=== PATIENT | female | born 2000 | race Hispanic/Latino ===

== ENCOUNTER 2024-08-30 21:41 | Day surgery (SDC) | payer SELFPAY ==
[2024-08-30 22:13] VITALS: BMI 40.2
[2024-08-30] MEDS ORDERED: hydrALAZINE 20 MG/ML VIAL SLOW IVP PRN (22:25)
[2024-08-30] MEDS ORDERED: Ondansetron ODT 8 MG TAB SL SCH (22:30)
[2024-08-30] MEDS: Dextrose 5%-Lactated Ringers 1,000 ML IV SCH (22:45)
[2024-08-30 22:54] LABS: Bilirubin Neg (Negative); Blood, Urine Negative (Negative); Glucose, Urine (Dipstick) Normal (Negative); Ketone, Urine Negative (Negative); Leukocyte 500 (Negative); Nitrite Negative (Negative); Protein, Urine (Dipstick) 15 mg/dl (Neg-Trace); Specific Gravity, Urine 1.015 (1.005-1.030); Urobilinogen Normal mg/dL (Less than 2)
[2024-08-30 22:55] LABS: Clarity Hazy (Clear)
[2024-08-30] MEDS: Ondansetron ODT 4 MG TAB SL SCH (23:00)
[2024-08-30] MEDS: Pantoprazole 40 MG VIAL IVP SCH (23:01)
[2024-08-30] MEDS: Loperamide HCl 2 MG CAP PO SCH (23:01)
[2024-08-30 23:26] LABS: Bacteria/HPF 2+ HPF (None Seen); CAUTI Indications for Culture Pregnancy; Mucous/LPF 1+ LPF (<2+); RBC/HPF 0-3 HPF (0-3)
[2024-08-30 23:27] LABS: Calcium Oxalate Crystals 3+ HPF (None Seen); Transitional Epithelial 0-3 HPF (None Seen)
[2024-08-30 23:28] LABS: Urine Culture Reflex Yes Yes
[2024-08-31] MEDS: cefTRIAXone\\ROCEPHIN 1 GM in Sodium Chloride 0.9% 100 ML IVPB SCH (00:34)
== END 2024-08-31 01:10 | disposition home or self-care (01) ==
LOC: CSHLD/OP 21:41
PROVIDERS: ATTEND Obstetrics & Gynecology
DX: O99.613 Diseases of the digestive system complicating pregnancy, third trimester (principal); K21.9 Gastro-esophageal reflux disease without esophagitis; O99.891 Other specified diseases and conditions complicating pregnancy; R10.9 Unspecified abdominal pain; O21.2 Late vomiting of pregnancy; Z79.899 Other long term (current) drug therapy; Z3A.34 34 weeks gestation of pregnancy
CPT/HCPCS: 81001; 87086; 96360; 99285; J0696; J2470; Q0162

== ENCOUNTER 2024-09-13 12:20 | Day surgery (SDC) | payer OTHER ==
[2024-09-13] MEDS ORDERED: hydrALAZINE 20 MG/ML VIAL SLOW IVP PRN (13:03)
[2024-09-13 13:37] LABS: ALT (SGPT) 10 U/L (8-55); AST (SGOT) 17 U/L (5-34); Albumin 2.5 g/dL (3.5-5.0); Alkaline Phosphatase 183 U/L (40-110); Anion Gap 13 mmol/L (10-20); BUN (Urea Nitrogen) 10 mg/dL (7.0-18.7); Bilirubin, Total 0.3 mg/dL (0.2-1.2); Calc. Creatinine Clearance 0 mL/min (70-130); Calcium 9.4 mg/dL (7.8-10.44); Carbon Dioxide 18 mmol/L (22-29); Chloride 110 mmol/L (98-107); Estimated GFR 128; Globulin 3.3 g/dL (2.4-3.5); Glucose 90 mg/dL (70-105); Protein, Total 5.8 g/dL (6.0-8.3); Sodium 137 mmol/L (136-145)
[2024-09-13 13:52] LABS: Creatinine, Urine 125.84 mg/dL (47-110)
[2024-09-13 14:02] LABS: #Basophils 0.04 10x3/uL (0.0-0.2); #Eosinophils 0.09 10x3/uL (0.0-0.5); #Monocytes 0.45 10x3/uL (0.0-1.1); #Neutrophils 5.55 10x3/uL (1.5-8.4); %Basophils 0.5 % (0.0-2.0); %Eosinophils 1.1 % (0.0-6.0); %Lymphocytes 26.6 % (18.0-47.0); %Monocytes 5.4 % (0.0-10.0); Hematocrit 36.7 % (34.9-44.5); Hemoglobin 12.7 g/dL (12.0-15.5); Mean Corpuscular HGB CONC 34.6 g/dL (32.0-36.0); Mean Corpuscular Hemoglobin 30.6 pg (27.0-33.0); Mean Corpuscular Volume 88.4 fL (81.6-98.3); Mean Platelet Volume 14.1 fL (7.4-10.4); Platelet Count 149 10x3/uL (150-450); RBC Distribution Width 12.4 % (11.5-14.5); Red Blood Cell (RBC) Count 4.15 10x6/uL (3.90-5.03); White Blood Cell (WBC) Count 8.4 10x3/uL (3.5-10.5)
== END 2024-09-13 16:51 | disposition home or self-care (01) ==
LOC: CSHLD/OP 12:20
PROVIDERS: ATTEND Family Medicine
DX: O99.891 Other specified diseases and conditions complicating pregnancy (principal); R03.0 Elevated blood-pressure reading, without diagnosis of hypertension; Z3A.36 36 weeks gestation of pregnancy; R51.9 Headache, unspecified; O99.613 Diseases of the digestive system complicating pregnancy, third trimester; O99.213 Obesity complicating pregnancy, third trimester; E66.812 Obesity, class 2; Z79.899 Other long term (current) drug therapy
CPT/HCPCS: 36415; 76819; 80053; 82570; 84156; 85025

== ENCOUNTER 2024-09-19 18:36 | Inpatient (IN) | payer MEDICAID, OTHER ==
[~2024-09-19 18:36] MED LIST: Bupivacaine 0.25% HCL 30 ML VIAL ONE; Bupivacaine PF 0.5% 30 ML VIAL ONE
[2024-09-19] MEDS: Lactated Ringer's 1,000 ML IV SCH (19:10)
[2024-09-19] MEDS ORDERED: Diphenoxylate HCl/Atropine Tablet PO PRN (19:36)
[2024-09-19] MEDS ORDERED: Lidocaine 1% (PF) 30 ML VIAL SC PRN (19:36)
[2024-09-19] MEDS ORDERED: Ibuprofen 800 MG TAB PO PRN (19:36)
[2024-09-19] MEDS ORDERED: Promethazine HCl 25 MG/ML VIAL IM PRN (19:36)
[2024-09-19] MEDS ORDERED: Oxytocin 30 units/NS 500 ML 500 ML IV SCH (19:45)
[2024-09-19 19:48] VITALS: BMI 40.6
[2024-09-19 20:04] LABS: Hematocrit 36.2 % (34.9-44.5); Hemoglobin 12.9 g/dL (12.0-15.5); Mean Corpuscular HGB CONC 35.6 g/dL (32.0-36.0); Mean Platelet Volume 14.2 fL (7.4-10.4); Platelet Count 144 10x3/uL (150-450); RBC Distribution Width 12.7 % (11.5-14.5); Red Blood Cell (RBC) Count 4.16 10x6/uL (3.90-5.03); White Blood Cell (WBC) Count 8.3 10x3/uL (3.5-10.5)
[2024-09-19] MEDS: hydrALAZINE 20 MG/ML VIAL SLOW IVP PRN (20:33)
[2024-09-19] MEDS ORDERED: Labetalol HCl 100 MG/20 ML VIAL SLOW IVP PRN (20:43)
[2024-09-19] MEDS ORDERED: Lorazepam 2 MG/ML VIAL SLOW IVP PRN (20:43)
[2024-09-19] MEDS ORDERED: Calcium Gluc 4.6 MEQ/10 ML (100 MG/ML) SLOW IVP PRN (20:43)
[2024-09-19] MEDS ORDERED: Magnesium Sulfate 20 gm/500 ml 20 GM/500 ML BAG IVPB SCH (20:45)
[2024-09-19] MEDS: Penicillin G Potassium 5 MILL.UNITS in Sodium Chloride 0.9% 100 ML IVPB SCH (21:15)
[2024-09-19] MEDS: Magnesium Sulfate 20 gm/500 ml 20 GM/500 ML BAG IVPB SCH (21:15)
[2024-09-19] MEDS: Misoprostol 100 MCG TAB VAG SCH (21:20)
[2024-09-20 00:32] LABS: HBsAg Index 0.21 S/CO (0-0.99); Hep B Surf Ag - L&D Non-Reactive S/CO (NonReactive)
[2024-09-20 00:33] LABS: Syphilis Antibody Nonreactive (Nonreactive); Syphilis Antibody Index 0.05 S/CO (<1.00 Non-Reactive)
[2024-09-20] MEDS: Penicillin G 2.5 MILL.units 2.5 MILL.UNITS in Premix 1 BAG IVPB SCH (00:52)
[2024-09-20] MEDS: hydrALAZINE 20 MG/ML VIAL SLOW IVP PRN ×2 (01:07→07:09)
[2024-09-20 04:18] LABS: ALT (SGPT) 14 U/L (8-55); AST (SGOT) 17 U/L (5-34); Albumin 2.5 g/dL (3.5-5.0); Alkaline Phosphatase 198 U/L (40-110); Anion Gap 16 mmol/L (10-20); BUN (Urea Nitrogen) 8 mg/dL (7.0-18.7); Bilirubin, Total 0.4 mg/dL (0.2-1.2); Calc. Creatinine Clearance 220 mL/min (70-130); Calcium 8.2 mg/dL (7.8-10.44); Carbon Dioxide 16 mmol/L (22-29); Chloride 109 mmol/L (98-107); Estimated GFR 125; Globulin 3.2 g/dL (2.4-3.5); Glucose 93 mg/dL (70-105); Potassium 3.7 mmol/L (3.5-5.1); Protein, Total 5.7 g/dL (6.0-8.3); Sodium 137 mmol/L (136-145)
[2024-09-20] MEDS: Acetaminophen 500 MG TAB PO PRN (08:17)
[2024-09-20] MEDS: Ondansetron PF 4 MG/2 ML Vial IVP PRN (09:27)
[2024-09-20] MEDS: Labetalol HCl 100 MG/20 ML VIAL SLOW IVP PRN (15:36)
[2024-09-20] MEDS: fentaNYL/Ropivacaine Epidural 100 ML ONE (16:00)
[2024-09-20] MEDS ORDERED: diphenhydrAMINE 50 MG/ML VIAL IVP PRN (16:08)
[2024-09-20] MEDS ORDERED: Promethazine HCl 25 MG/ML VIAL IM PRN (16:08)
[2024-09-20] MEDS ORDERED: ePHEDrine Sulfate 50 MG/10 ML VIAL SLOW IVP PRN (16:08)
[2024-09-20] MEDS ORDERED: Naloxone HCl 0.4 mg/ml Vial IVP PRN ×2 (16:08)
[2024-09-20] MEDS ORDERED: Lactated Ringer's 500 ML IV PRN (16:08)
[2024-09-20] MEDS ORDERED: Communication Order-Pharmacy FS SCH (16:15)
[2024-09-20] MEDS: Oxytocin 30 units/NS 500 ML 500 ML IV SCH (17:46)
[2024-09-21] MEDS: fentaNYL 2 mcg/Ropivacaine 0.2% Epidural 100 ML CADD EPIDURAL SCH (01:07)
[2024-09-21] MEDS: Misoprostol 200 MCG TAB PR PRN (07:24)
[2024-09-21] MEDS: Carboprost 250 MCG/ML AMP IM PRN (08:09)
[2024-09-21] MEDS: Tranexamic Acid 1,000 MG/10 ML VIAL IVP PRN (08:11)
[2024-09-21] MEDS: fentaNYL 50 mcg/mL 1 mL Vial ONE (08:19)
[2024-09-21] MEDS: Carboprost 250 MCG/ML AMP ONE (08:24)
[2024-09-21] MEDS: Diphenoxylate HCl/Atropine Tablet PO SCH ×2 (08:40→11:07)
[2024-09-21] MEDS: Ondansetron PF 4 MG/2 ML Vial IVP PRN (09:03)
[2024-09-21] MEDS: Oxytocin 30 units/NS 500 ML 500 ML IV SCH (09:09)
[2024-09-21 09:11] LABS: D-Dimer Test 6.66 mcg/mL (0.19-0.50); INR-International Normal Ratio 0.9; PTT 26.7 sec (22.0-33.0); Prothrombin Time 9.7 sec (9.5-12.1)
[2024-09-21] MEDS: Lidocaine 1% (PF) 30 ML VIAL ONE (09:16)
[2024-09-21] MEDS: Carboprost 250 MCG/ML AMP IM SCH (09:17)
[2024-09-21] MEDS: Tranexamic Acid 1,000 MG/10 ML VIAL IVP SCH (09:17)
[2024-09-21] MEDS: cefOXitin 2 GM in Sodium Chloride 0.9% 100 ML IVPB SCH (09:21)
[2024-09-21] MEDS: Moisturizing Cream (Eucerin) 113 GM JAR TOP PRN (09:27)
[2024-09-21] MEDS ORDERED: Diphenoxylate HCl/Atropine Tablet PO PRN (10:33)
[2024-09-21] MEDS ORDERED: HYDROcodone/Acetaminophen 10/325 mg Tablet PO PRN ×3 (10:54→11:35)
[2024-09-21 10:58] LABS: Hematocrit 33.3 % (34.9-44.5); Hemoglobin 11.6 g/dL (12.0-15.5); Mean Corpuscular HGB CONC 34.8 g/dL (32.0-36.0); Mean Corpuscular Hemoglobin 31.2 pg (27.0-33.0); Mean Corpuscular Volume 89.5 fL (81.6-98.3); Mean Platelet Volume 14.3 fL (7.4-10.4); Platelet Count 155 10x3/uL (150-450); Red Blood Cell (RBC) Count 3.72 10x6/uL (3.90-5.03); White Blood Cell (WBC) Count 20.6 10x3/uL (3.5-10.5)
[2024-09-21] MEDS: Ketorolac Tromethamine 30 MG (1 mL) VIAL IVP SCH (11:45)
[2024-09-21] MEDS: CEFOXITIN IVPB SCH (14:07)
[2024-09-21] MEDS: HYDROcodone/Acetaminophen 10/325 mg Tablet PO PRN (16:59)
[2024-09-21 17:54] LABS: Hematocrit 32.5 % (34.9-44.5); Hemoglobin 11.3 g/dL (12.0-15.5); Mean Corpuscular HGB CONC 34.8 g/dL (32.0-36.0); Mean Corpuscular Hemoglobin 30.6 pg (27.0-33.0); Mean Corpuscular Volume 88.1 fL (81.6-98.3); Mean Platelet Volume 13.6 fL (7.4-10.4); Platelet Count 142 10x3/uL (150-450); RBC Distribution Width 13.2 % (11.5-14.5); Red Blood Cell (RBC) Count 3.69 10x6/uL (3.90-5.03); White Blood Cell (WBC) Count 18.4 10x3/uL (3.5-10.5)
[2024-09-21 22:13] LABS: Anion Gap 12 mmol/L (10-20); BUN (Urea Nitrogen) 11 mg/dL (7.0-18.7); Calc. Creatinine Clearance 223 mL/min (70-130); Carbon Dioxide 19 mmol/L (22-29); Chloride 105 mmol/L (98-107); Estimated GFR 126; Glucose 95 mg/dL (70-105); Potassium 3.9 mmol/L (3.5-5.1); Sodium 132 mmol/L (136-145)
[2024-09-21 22:15] LABS: Critical Call Chemistry AT NUR.ED4 READ BACK RESULT @ 1015; Magnesium 5.6 mg/dL (1.6-2.6)
[2024-09-21] MEDS: Furosemide 20 MG (2 mL) VIAL SLOW IVP SCH (22:21)
[2024-09-22 05:35] LABS: Hematocrit 27.8 % (34.9-44.5); Hemoglobin 9.8 g/dL (12.0-15.5); Mean Corpuscular HGB CONC 35.3 g/dL (32.0-36.0); Mean Corpuscular Hemoglobin 30.9 pg (27.0-33.0); Mean Corpuscular Volume 87.7 fL (81.6-98.3); Mean Platelet Volume 13.7 fL (7.4-10.4); Platelet Count 132 10x3/uL (150-450); RBC Distribution Width 13.7 % (11.5-14.5); Red Blood Cell (RBC) Count 3.17 10x6/uL (3.90-5.03)
[2024-09-22] MEDS ORDERED: Diphenoxylate HCl/Atropine Tablet PO PRN (05:37)
[2024-09-22] MEDS ORDERED: Bisacodyl 10 MG SUPP PR PRN (05:37)
[2024-09-22] MEDS ORDERED: Misoprostol 200 MCG TAB VAG PRN (05:37)
[2024-09-22] MEDS ORDERED: Carboprost 250 MCG/ML AMP IM PRN (05:37)
[2024-09-22] MEDS ORDERED: Calcium Gluc 4.6 MEQ/10 ML (100 MG/ML) SLOW IVP PRN (05:37)
[2024-09-22] MEDS ORDERED: Labetalol HCl 100 MG/20 ML VIAL SLOW IVP PRN ×2 (05:37)
[2024-09-22] MEDS ORDERED: hydrALAZINE 20 MG/ML VIAL SLOW IVP PRN ×3 (05:37)
[2024-09-22] MEDS ORDERED: Lorazepam 2 MG/ML VIAL SLOW IVP PRN (05:37)
[2024-09-22] MEDS ORDERED: Oxytocin 30 units/NS 500 ML 500 ML IV SCH (05:37)
[2024-09-22] MEDS ORDERED: Preparation H Ointment 28 GM TUBE PR PRN (05:37)
[2024-09-22 05:42] LABS: Anion Gap 12 mmol/L (10-20); BUN (Urea Nitrogen) 8 mg/dL (7.0-18.7); Calc. Creatinine Clearance 234 mL/min (70-130); Calcium 7.3 mg/dL (7.8-10.44); Carbon Dioxide 21 mmol/L (22-29); Chloride 108 mmol/L (98-107); Estimated GFR 127; Glucose 88 mg/dL (70-105); Potassium 3.8 mmol/L (3.5-5.1); Sodium 137 mmol/L (136-145)
[2024-09-22] MEDS: Boostrix 0.5 ML (Tdap) VIAL (>/=7 yrs of age) IM ONE (06:27)
[2024-09-22] MEDS: Ferrous Sulfate 325 MG TAB PO SCH ×2 (06:37→22:35)
[2024-09-22] MEDS: Ibuprofen 800 MG TAB PO SCH (06:37)
[2024-09-22] MEDS: Docusate 100 MG CAP PO SCH ×2 (06:37→21:21)
[2024-09-22] MEDS: Furosemide 20 MG (2 mL) VIAL SLOW IVP SCH (08:34)
[2024-09-23] MEDS: Acetaminophen 325 MG TAB PO PRN (00:12)
[2024-09-23] MEDS: Milk Of Magnesia 30 ML UDCUP PO PRN (03:19)
[2024-09-23] MEDS: Ondansetron PF 4 MG/2 ML Vial IVP PRN (03:22)
[2024-09-23] MEDS ORDERED: HYDROcodone/Acetaminophen 5/325 mg Tablet PO PRN ×2 (08:04)
[2024-09-23] MEDS ORDERED: Milk Of Magnesia 30 ML UDCUP PO SCH (09:00)
[2024-09-23] MEDS ORDERED: Simethicone Chewable 80 MG TAB PO PRN (09:24)
[2024-09-23] MEDS: Polyethylene Glycol 3350 17 GM Packet PO SCH (10:08)
[2024-09-23] MEDS: Famotidine 20 MG TAB PO SCH (10:08)
[2024-09-23] MEDS: Labetalol HCl 100 MG TAB PO SCH ×2 (15:34→21:21)
[2024-09-23] MEDS: Enoxaparin 60 MG (0.6 mL) SYRINGE SC SCH (21:47)
[2024-09-24 07:33] VITALS: BP 140/86; TEMP 98.2
[2024-09-24] MEDS: Polyethylene Glycol 3350 17 GM Packet PO SCH (08:00)
[2024-09-24] MEDS: Ferrous Sulfate 325 MG TAB PO SCH (08:00)
== END 2024-09-24 12:15 | disposition home or self-care (01) | DRG 807 ==
LOC: CSHLD 18:36 → CSHPP 09-22 06:05
PROVIDERS: ADMIT Family Medicine; ATTEND Family Medicine
PROC: 10E0XZZ Delivery of Products of Conception, External Approach (ICD-10-PCS; principal; 2024-09-21)
PROC: 0KQM0ZZ Repair Perineum Muscle, Open Approach (ICD-10-PCS; 2024-09-21)
PROC: 0UQMXZZ Repair Vulva, External Approach (ICD-10-PCS; 2024-09-21)
DX: O13.4 Gestational [pregnancy-induced] hypertension without significant proteinuria, complicating childbirth (principal); Z37.0 Single live birth; K21.9 Gastro-esophageal reflux disease without esophagitis; O99.214 Obesity complicating childbirth; O99.62 Diseases of the digestive system complicating childbirth; O24.92 Unspecified diabetes mellitus in childbirth; O72.1 Other immediate postpartum hemorrhage; E66.813 Obesity, class 3; Z79.82 Long term (current) use of aspirin; Z79.899 Other long term (current) drug therapy; Z3A.37 37 weeks gestation of pregnancy
CPT/HCPCS: 36415; 36430; 51702; 80048; 80053; 83735; 85027; 85049; 85300; 85362; 85384; 85610; 85730; 86780; 86850; 86900; 86901; 87340; 88307; J0360; J0665; J0694; J1650; J1885; J1940; J2405; J2540; J2590; J3010; J3475; J3490; J7120; P9016